=== PATIENT | female | born 1960 | race Caucasian/White ===

== ENCOUNTER → 2021-03-02 | Outpatient (CLI) | payer OTHER ==
[~2021-03-02] MED LIST: BIOTIN2500 MCG PO; FISH OIL 1,0001 EAC3 PO; LISINOPRIL10 MG PO; PERCOCET 5-3251 EACH PO; VITAMIN K100 MCG PO
== END ==
LOC: KOH-I 11:20
DX: M19.041 Primary osteoarthritis, right hand (principal); M19.011 Primary osteoarthritis, right shoulder; M19.012 Primary osteoarthritis, left shoulder
CPT/HCPCS: 73030; 73120